=== PATIENT | male | born 1945 | race Caucasian/White ===

== ENCOUNTER 2017-05-29 12:36 | Emergency (ER) | payer MEDICARE ==
[~2017-05-29] VITALS: Ht 172.7 cm; Wt 86.0 kg
[~2017-05-29 12:36] MED LIST: ADVAIR DISK1 INH; ALBUTEROL1 IN; ATIVAN1 MG PO; ENALAPRIL10 MG PO; FLUARIX QUADRIV1 IN1 IM; FLUARIX QUADRIV1 IN2 IM; FLUARIX QUADRIV1 INJ IM; GLIMEPIRIDE4 MG PO; HYDROCHLOROT25 MG PO; LOPRESSOR25 M1 PO; LORAZEPAM0.5 MG PO; OXYGEN IN; PRAVASTATIN40 MG PO; PROVENTIL HFA IN; VENTOLIN HFA IN; XANAX0.5 MG PO
[2017-05-29 13:57] LABS: HEMATOCRIT 50.4 % (39.0-50.0); HEMOGLOBIN 15.5 g/dl (14.0-18.0); IMMATURE GRANULOCYTES 0.6 % (0.0-1.0); MEAN CELL VOLUME 98.1 fL CALC (80.0-100.0); MEAN CORPUSCULAR HGB 30.2 pG CALC (26.0-32.0); MEAN CORPUSCULAR HGB CONC 30.8 g/L CALC (32.0-36.0); NEUT# 9.1 thou/uL (1.82-7.42); RED BLOOD COUNT 5.14 mill/uL (4.70-6.10); RED CELL DISTRI WIDTH 14.2 % (11.5-15.5)
[2017-05-29 14:08] LABS: ALKALINE PHOSPHATASE 68 u/l (38-126); ANION GAP 15 (6-22 (CALC)); BILIRUBIN, TOTAL 0.6 mg/dL (0.0-1.4); BUN 19 mg/dL (8-23); BUN/CREATININE RATIO 26 (12-20 (CALC)); CALCIUM 8.9 mg/dL (8.4-10.2); CARBON DIOXIDE 35 mmol/l (22-30); CHLORIDE 95 mmol/l (95-108); CREATININE 0.7 mg/dL (0.7-1.3); GFR > 60 ML/MIN (>=60 (CALC)); GFR FOR AFR.AMER. > 60 ML/MIN (>=60 (CALC)); GLUCOSE 134 mg/dL (82-115); POTASSIUM 4.4 mmol/l (3.5-5.1); SGOT/AST 16 u/l (19-48); SGPT/ALT 36 u/l (11-66); SODIUM 141 mmol/l (137-146)
[2017-05-29 14:17] LABS: MYOGLOBIN 76 ng/mL (0 - 121)
[2017-05-29] MEDS ORDERED: ZITHROMAX250 MG PO (15:23)
[2017-05-29] MEDS ORDERED: PREDNISONE50 MG PO (15:23)
[2017-05-29 15:31] VITALS: BP 137/65
== END 2017-05-29 16:15 | disposition home or self-care (01) ==
LOC: ED 12:36
PROVIDERS: Emergency Medicine
DX: J44.1 Chronic obstructive pulmonary disease with (acute) exacerbation (principal); I25.10 Atherosclerotic heart disease of native coronary artery without angina pectoris; I10 Essential (primary) hypertension; R06.02 Shortness of breath